=== PATIENT | female | born 1995 | race Caucasian/White ===

== ENCOUNTER 2025-02-26 11:53 | Emergency (ER) | payer OTHER ==
[2025-02-26 12:05] VITALS: BP 136/81; PULSE 85; RESP 20; TEMP 97.9; BMI 36.0
[2025-02-26] MEDS ORDERED: ACETAMINOPHEN 325 MG TABLET (FP) ONE (12:30)
[2025-02-26] MEDS ORDERED: ACETAMINOPHEN 500 MG TABLET (FP) PO ONE (12:30)
[2025-02-26] MEDS: ACETAMINOPHEN 500 MG TABLET (FP) PO ONE (12:32)
[2025-02-26] MEDS ORDERED: IBUPROFEN 600 MG TABLET (FP) PO ONE (14:45)
[2025-02-26] MEDS: IBUPROFEN 600 MG TABLET (FP) PO ONE (14:46)
== END 2025-02-26 15:11 | disposition home or self-care (01) ==
LOC: JERFT 11:53
DX: F07.81 Postconcussional syndrome (principal); R51.9 Headache, unspecified; H53.8 Other visual disturbances
CPT/HCPCS: 70450-TC; 70486-TC; 99284-25